=== PATIENT | male | born 1960 | race Caucasian/White ===

== ENCOUNTER 2019-12-23 18:25 | Inpatient (IN) | payer OTHER ==
[~2019-12-23] VITALS: Ht 167.6 cm; Wt 66.7 kg
[2019-12-23 18:43] VITALS: Ht 167.6 cm; Wt 66.7 kg
[2019-12-23 19:31] LABS: PLATELET COUNT 433 x10^3mcL (130-400); RED CELL DISTRIBUTION WIDTH 17.6 % (11.5-14.5)
[2019-12-23 19:39] LABS: CARBON DIOXIDE 28.3 mmol/L (21-32); CHLORIDE SERUM 101 mmol/L (98-107); CREATININE SERUM 1.3 mg/dL (0.7-1.3); GFR1 > 60 mL/min; GLUCOSE SERUM 70 mg/dL (74-106); POTASSIUM SERUM 4.1 mmol/L (3.5-5.1); SODIUM SERUM 138 mmol/L (136-145)
[2019-12-23 19:40] LABS: BAND NEUTROPHIL 0 % (0-10); BASOPHIL 0 % (0-2); MONOCYTE 12 % (0-7); SEGMENTED NEUTROPHILS 50 % (37-75); rbc morphology (normal/abnorm) ABNORMAL (NORMAL)
[2019-12-23 19:42] LABS: ovalocyte/elliptocyte 2+
[2019-12-23 19:44] LABS: ALBUMIN 3.8 g/dL (3.4-5.0); ALKALINE PHOSPHATASE 55 U/L (46-116); ALT/SGPT 16 U/L (16-63); AST/SGOT 5 U/L (15-37); BILIRUBIN TOTAL 0.18 mg/dL (0.20-1.00); TOTAL PROTEIN, SERUM 7.8 g/dL (6.4-8.2)
[2019-12-23] MEDS ORDERED: ZESTRIL2.5 MG (20:19)
[2019-12-23] MEDS ORDERED: GLIPIZIDE XL2.5 M1 (20:19)
[2019-12-24 01:09] LABS: BASOPHIL % 0.4 % (0-2)
[2019-12-24 01:18] LABS: PLATELET COUNT 430 x10^3mcL (130-400); RED CELL DISTRIBUTION WIDTH 20.9 % (11.5-14.5)
[2019-12-24 01:20] LABS: rbc morphology (normal/abnorm) ABNORMAL (NORMAL)
[2019-12-24 01:59] VITALS: BP 142/69
[2019-12-24 05:32] LABS: microscopic required? NO
[2019-12-24 06:00] LABS: AMPHETAMINE QUAL UR NONE DETECTED (See below); urine erythrocyte NEGATIVE (NEGATIVE)
[2019-12-24 06:08] VITALS: BP 134/67
[2019-12-24 07:20] LABS: CHLORIDE SERUM 105 mmol/L (98-107); CREATININE SERUM 1.1 mg/dL (0.7-1.3); GFR1 > 60 mL/min; GLUCOSE SERUM 88 mg/dL (74-106); MAGNESIUM 2.1 mg/dL (1.8-2.4); PHOSPHOROUS 4.4 mg/dL (2.5-4.9); POTASSIUM SERUM 4.2 mmol/L (3.5-5.1); SODIUM SERUM 141 mmol/L (136-145)
[2019-12-24 08:30] LABS: BASOPHIL % 0.7 % (0-2)
[2019-12-24 08:37] LABS: PLATELET COUNT 405 x10^3mcL (130-400)
[2019-12-24 09:00] VITALS: BP 134/64
[2019-12-24 09:17] LABS: rbc morphology (normal/abnorm) ABNORMAL (NORMAL)
[2019-12-24 13:04] VITALS: BP 131/66
[2019-12-24 17:12] VITALS: BP 132/66
[2019-12-24 21:01] VITALS: BP 142/67
[2019-12-25 05:57] VITALS: BP 140/68
[2019-12-25 06:27] LABS: CALCIUM 9.1 mg/dL (8.5-10.1); CARBON DIOXIDE 26.5 mmol/L (21-32); CHLORIDE SERUM 109 mmol/L (98-107); CREATININE SERUM 0.9 mg/dL (0.7-1.3); GFR1 > 60 mL/min; GLUCOSE SERUM 115 mg/dL (74-106); MAGNESIUM 2.2 mg/dL (1.8-2.4); POTASSIUM SERUM 4.7 mmol/L (3.5-5.1); SODIUM SERUM 142 mmol/L (136-145)
[2019-12-25 06:37] LABS: BASOPHIL % 0.2 % (0-2)
[2019-12-25 06:53] LABS: PLATELET COUNT 429 x10^3mcL (130-400); RED CELL DISTRIBUTION WIDTH 25.7 % (11.5-14.5)
[2019-12-25 07:59] VITALS: BP 149/72
[2019-12-25 09:38] LABS: rbc morphology (normal/abnorm) ABNORMAL (NORMAL)
[2019-12-25 12:47] VITALS: BP 133/68
[2019-12-25 12:52] VITALS: BP 129/72
[2019-12-25 17:25] VITALS: BP 155/72
[2019-12-25 21:23] VITALS: BP 147/71
[2019-12-26 05:34] VITALS: BP 147/70
[2019-12-26 07:03] LABS: CALCIUM 8.9 mg/dL (8.5-10.1); CARBON DIOXIDE 24.9 mmol/L (21-32); CHLORIDE SERUM 107 mmol/L (98-107); CREATININE SERUM 0.8 mg/dL (0.7-1.3); GFR1 > 60 mL/min; GLUCOSE SERUM 92 mg/dL (74-106); MAGNESIUM 1.9 mg/dL (1.8-2.4); PHOSPHOROUS 4.1 mg/dL (2.5-4.9); POTASSIUM SERUM 4.4 mmol/L (3.5-5.1); SODIUM SERUM 140 mmol/L (136-145)
[2019-12-26 07:13] LABS: BASOPHIL % 0.4 % (0-2)
[2019-12-26 07:39] LABS: PLATELET COUNT 402 x10^3mcL (130-400); RED CELL DISTRIBUTION WIDTH 25.8 % (11.5-14.5)
[2019-12-26 07:48] VITALS: BP 146/71
[2019-12-26 10:33] LABS: ovalocyte/elliptocyte 1+; rbc morphology (normal/abnorm) ABNORMAL (NORMAL); tear drop cell (dacryocyte) 1+
[2019-12-26 12:10] VITALS: BP 147/70
[2019-12-26 16:34] VITALS: BP 156/74
[2019-12-26 20:20] VITALS: BP 150/72
[2019-12-27 04:23] VITALS: BP 144/65
[2019-12-27 07:06] LABS: CALCIUM 8.7 mg/dL (8.5-10.1); CARBON DIOXIDE 22.4 mmol/L (21-32); CHLORIDE SERUM 105 mmol/L (98-107); CREATININE SERUM 0.8 mg/dL (0.7-1.3); GFR1 > 60 mL/min; GLUCOSE SERUM 120 mg/dL (74-106); MAGNESIUM 1.7 mg/dL (1.8-2.4); PHOSPHOROUS 4.2 mg/dL (2.5-4.9); POTASSIUM SERUM 3.6 mmol/L (3.5-5.1); SODIUM SERUM 139 mmol/L (136-145)
[2019-12-27 07:27] VITALS: BP 144/72
[2019-12-27 07:32] LABS: BASOPHIL % 0.9 % (0-2); PLATELET COUNT 370 x10^3mcL (130-400)
[2019-12-27 07:40] LABS: RED CELL DISTRIBUTION WIDTH 26.4 % (11.5-14.5)
[2019-12-27 09:54] LABS: burr cell (echinocyte) 1+; rbc morphology (normal/abnorm) ABNORMAL (NORMAL)
[2019-12-27 12:45] VITALS: BP 144/70
[2019-12-27] MEDS ORDERED: FEOSOL65 M1 PO (17:58)
[2019-12-27 18:24] VITALS: BP 148/66
== END 2019-12-27 19:46 | disposition home or self-care (01) | DRG 374 ==
LOC: ED 18:25 → DU 20:12
PROVIDERS: Emergency Medicine; Internal Medicine; Internal Medicine Gastroenterology; ADMIT Family Medicine
PROC: 30233N1 Transfusion of Nonautologous Red Blood Cells into Peripheral Vein, Percutaneous Approach (ICD-10-PCS; 2019-12-23)
PROC: 0DB68ZX Excision of Stomach, Via Natural or Artificial Opening Endoscopic, Diagnostic (ICD-10-PCS; 2019-12-24)
PROC: 0DBP8ZX Excision of Rectum, Via Natural or Artificial Opening Endoscopic, Diagnostic (ICD-10-PCS; principal; 2019-12-24 13:30)
PROC: 0DJD8ZZ Inspection of Lower Intestinal Tract, Via Natural or Artificial Opening Endoscopic (ICD-10-PCS; 2019-12-25)
PROC: 0FB23ZX Excision of Left Lobe Liver, Percutaneous Approach, Diagnostic (ICD-10-PCS; 2019-12-27)
PROC: 02HV33Z Insertion of Infusion Device into Superior Vena Cava, Percutaneous Approach (ICD-10-PCS; 2019-12-27)
PROC: B548ZZA Ultrasonography of Superior Vena Cava, Guidance (ICD-10-PCS; 2019-12-27)
DX: C20 Malignant neoplasm of rectum (principal); N17.0 Acute kidney failure with tubular necrosis; D62 Acute posthemorrhagic anemia; I10 Essential (primary) hypertension; E11.9 Type 2 diabetes mellitus without complications; Z79.899 Other long term (current) drug therapy
CPT/HCPCS: 43235; 45378; 87046; 87046-59; C9113; G0378; J0690; J1200; J1610; J1644; J2001; J2250; J2310; J2765; J2916; J3010; J3490; J7030; J7040; P9016; Q0092; Q0163; Q9967

== ENCOUNTER 2020-01-06 13:25 | Emergency (ER) | payer OTHER ==
[~2020-01-06] VITALS: Ht 167.6 cm; Wt 74.8 kg
[~2020-01-06 13:25] MED LIST: FEOSOL65 M1 PO; GLIPIZIDE XL2.5 M1; ZESTRIL2.5 MG
[2020-01-06 13:50] VITALS: Ht 167.6 cm; Wt 74.8 kg
[2020-01-06 16:01] VITALS: BP 145/77
== END 2020-01-06 15:55 | disposition home or self-care (01) ==
LOC: ED 13:25
DX: I10 Essential (primary) hypertension (principal); E11.9 Type 2 diabetes mellitus without complications